=== PATIENT | male | born 1955 | race Caucasian/White ===

== ENCOUNTER → 2020-05-09 | Outpatient (CLI) | payer OTHER, MEDICARE ==
[2020-05-09 11:04] LABS: CREATININE 1.1 mg/dL (0.7-1.3)
== END ==
LOC: LAB 10:22 → MRI 10:22
PROVIDERS: ATTEND Ophthalmology
DX: D48.5 Neoplasm of uncertain behavior of skin (principal); H05.20 Unspecified exophthalmos

== ENCOUNTER → 2021-05-15 | Outpatient (CLI) | payer OTHER, MEDICARE ==
[2021-05-15 10:39] LABS: CREATININE 1.1 mg/dL (0.7-1.3)
== END ==
LOC: MRI 09:36
PROVIDERS: ATTEND Ophthalmology
DX: D18.09 Hemangioma of other sites (principal); D31.61 Benign neoplasm of unspecified site of right orbit; D31.62 Benign neoplasm of unspecified site of left orbit